=== PATIENT | male | born 1965 | race Hispanic/Latino ===

== ENCOUNTER 2018-01-22 11:35 | Emergency (ER) | payer MEDICARE, OTHER ==
--- NOTE | 2018-01-22 13:02 | Emergency Department Report ---
ED Rash HPI - HPI Chief Complaint: Skin Rash Stated Complaint: RASH Time Seen by Provider: 01/22/18 12:45 Duration: 3 Days Location: Upper Extremities Suspected Cause: Unknown Rash Symptoms: Yes Itching (both arms), No Facial Swelling, No Tongue/Oral Swelling, No Breathing Difficulties, No Choking Sensation, No Wheezing/Dyspnea, No Peeling, No Blistering, No Fever, No Lightheaded, No Malaise, No Myalgias Severity: moderate (itching) Other History: This is a 52-year-old male that had history of cellulitis inferior sports physical body and he reports that he was so severe and 2017 that he had that to left lower abdomen. Patient's that he is not having multiple areas of concern. He said he is having itchy rash on his arms that itches and bruises. He states that [facility] in [place] is unable to explain why. He has a history of liver transplant 10 years ago and he still on antirejection medication. Patient denies any pain. He states that he is having severe itching and he was recently doing yard work outdoors. Denies any respiratory symptoms. Denies any fever or chills. Denies cough congestion, shortness of breath or chest pain. Denies any abdominal pain. ED Review of Systems ROS: Stated complaint: RASH Other details as noted in HPI Constitutional: denies: chills, fever Eyes: denies: eye pain, vision change ENT: denies: ear pain, throat pain, congestion Respiratory: denies: cough, shortness of breath, SOB with exertion, SOB at rest , stridor, wheezing Cardiovascular: denies: chest pain, palpitations, edema, syncope Gastrointestinal: denies: nausea, vomiting, diarrhea Musculoskeletal: denies: back pain, joint swelling, arthralgia Skin: pruritus. denies: rash ED Past Medical Hx - Past Medical History Previous Medical History?: Yes Hx Renal Disease: Yes Additional medical history: liver transplant r/t Hep C.cellulitis requiring wound vac 11/2017,cellulitis left hand 2nd digit - Surgical History Past Surgical History?: Yes Additional Surgical History: left hand 2nd digit 11/2017-cellulitis - Family History Family history: hypertension - Social History Smoking Status: Current Every Day Smoker Substance Use Type: None - Medications Home Medications: Home Medications Medication Instructions Recorded Confirmed Last Taken Type Sulfamethoxazole/Trimethoprim 1 each PO BID 10 Days #20 tablet 01/22/18 Unknown Rx [Bactrim DS TAB] hydrOXYzine HCL [Atarax] 25 mg PO Q6HR PRN #12 tablet 01/22/18 Unknown Rx methylPREDNISolone [Medrol Dose 4 mg PO DAILY #1 tab.ds.pk 01/22/18 Unknown Rx Param] Rash Exam - Exam General: Vital signs noted. No distress. Alert and acting appropriately. This is a 52-year-old male well-nourished well-developed in no acute distress. HEENT: No Periorbital Edema, No Conjuctival Injection, No Chemosis, No Perioral Edema, No Tongue Edema, No Uvular Edema, No Compromised Airway, No Drooling Lungs: Yes Good Air Exchange (CTAB), No Wheezes, No Ronchi, No Stridor, No Cough , No Labored Respirations, No Retractions, No Use of Accessory Muscles, No Other Abnormal Lung Sounds Heart: Yes Regular (mild tachycardia 101, S1 and S2), No Murmur Front/Back of Body, Lg (Color): 1 - Patient with papular, erythema nontender cyst scattered rashes to upper extremities. Some areas of scabbing from where he is intensely scratching his skin. Bilateral radial and ulnar pulses are intact. 2+ and bounding and he has no restriction in movement to is joints or fingers. 2 - See #1 Skin: Yes Maculopapular Rash (bilateral upper extremity sparsely scattered), Yes Excoriations (some excoriation where patient is a chin), Yes Erythema, No Urticarial Rash, No Morbilliform rash, No Bulla(e), No Tenderness, No Edema, No Encrustations, No Other Other: Positive: Abdomen Normal, Neurologic Normal, Musculoskeletal Normal ED Course Vital Signs 01/22/18 11:42 Temperature 98.2 F Pulse Rate 101 H Respiratory 20 Rate Blood Pressure 135/91 O2 Sat by Pulse 100 Oximetry - Reevaluation(s) Reevaluation #1: 01/22/18 13:47 Patient given Deltasone 60 mg by mouth, Bactrim DS 1 tablet by mouth and Benadryl 50 mg IM with positive relief of itching. ED Medical Decision Making - Medical Decision Making This is a 52-year-old patient here reported that he has rash to his upper extremity that is itching. No medication taken but he said he went to [facility] and they did not know what the rash twice. Patient is seen and examined by myself and found to have papular erythema areas scattered sparsely to bilateral upper extremity. There are signs were he has been scratching in were he has area of skin infection. The patient has contact dermatitis problem from poison plant and superimposed bacterial infection. Patient was given Deltasone 60 mg by mouth, Benadryl 50 mg IM and Bactrim DS one by mouth. Patient has relief. I discussed the patient that he needs to follow up with primary care and community relations liaison and also let his organ transplant doctor knows that he is on medication for contact dermatitis. Any forcibly. Contact dermatitis more than likely due to poison plant-patient given Deltasone 60 mg by mouth and emergency room and follow-up with community relations liaison and his transplant doctor. Pruritus-will be discharged home in [place] and he was given Benadryl 50 mg I am in the emergency room which relieved his itching. Bacterial skin infection-to be discharged on Bactrim DS and he was given his first dose in the emergency room. Patient discharged home in stable condition. Vital signs are stable afebrile and is nontoxic in appearance. Itching has relief. Denies any nausea or vomiting. Patient discharged home with prescription for Bactrim DS to treat minor bacterial skin infection from him scratching and rash, Medrol Dosepak to treat contact dermatitis and Atarax for itching. He is to follow-up with his transplant doctor and also community relations liaison and PCP and 2 days and he voiced understanding. Critical care attestation.: If time is entered above; I have spent that time in minutes in the direct care of this critically ill patient, excluding procedure time. ED Disposition Clinical Impression: Pruritus, Skin infection, bacterial Contact dermatitis Qualifiers: Contact dermatitis type: allergic Contact dermatitis trigger: unspecified trigger Qualified Code(s): L23.9 - Allergic contact dermatitis, unspecified cause Disposition: - TO HOME OR SELFCARE Is pt being admited?: No Does the pt Need Aspirin: No Condition: Stable Instructions: Cellulitis (ED), Contact Dermatitis (ED), Itchy Skin (ED) Additional Instructions: Please take Atarax for itching but please do not drive or operate heavy machinery while taking this medication as it causes drowsiness Take Medrol Dosepak for contact dermatitis Take Bactrim DS for bacterial skin infection Follow-up with your primary care physician, community relations liaison Aristes organ transplant doctor in 2 days. Prescriptions: hydrOXYzine HCL [Atarax] 25 mg PO Q6HR PRN #12 tablet PRN Reason: Itching Referrals: PRIMARY CAREMD [Primary Care Provider] - 01/24/18 ROSS YOUNGER MD [Staff Physician] - 01/24/18 Forms: Work/School Release Form(ED)
[2018-01-22] MEDS ORDERED: DELTASONE PO ONE (13:12)
[2018-01-22] MEDS ORDERED: BENADRYL IM ONE (13:12)
[2018-01-22] MEDS ORDERED: BACTRIM DS PO ONE (13:13)
[2018-01-22 14:48] VITALS: BP 131/90
== END 2018-01-22 14:47 | disposition home or self-care (01) ==
LOC: ED 11:35
DX: L23.9 Allergic contact dermatitis, unspecified cause (principal); F17.200 Nicotine dependence, unspecified, uncomplicated
CPT/HCPCS: 96372; 99282; J1200; J7512

== ENCOUNTER 2018-02-09 09:00 | Emergency (ER) | payer MEDICARE ==
[2018-02-09 09:53] VITALS: BP 129/83
[2018-02-09] MEDS ORDERED: DELTASONE PO ONE (11:43)
[2018-02-09] MEDS ORDERED: FLEXERIL PO ONE (11:43)
--- NOTE | 2018-02-09 12:03 | Emergency Department Report ---
HPI - General Chief Complaint: Extremity Injury, Lower Time Seen by Provider: 02/09/18 11:28 - HPI HPI: 52-year-old male presents to the emergency department with complaint of a three-day history of some pain starting in the left lower back and radiates down his left leg to the knee. It worsens with certain movements and with walking. He denies any problems with bowel or bladder, numbness or paresthesias or any neurological deficits. He has tried some Aleve and Tylenol for his symptoms without any relief. He denies any falls or trauma. He has a past medical history of COPD, borderline hypertension and has a history of a liver transplant from hepatitis C. Patient is also requesting a refill of his liver transplant medication, Gengraf, as his medication is back at home in [place] and he does not return home and therefore one to 2 weeks. ED Past Medical Hx - Past Medical History Previous Medical History?: Yes Hx Hypertension: Yes (doctor took pt off bp medication) Hx Renal Disease: Yes Hx Arthritis: Yes Hx COPD: Yes Additional medical history: liver transplant r/t Hep C.cellulitis requiring wound vac 11/2017,cellulitis left hand 2nd digit - Surgical History Past Surgical History?: Yes Additional Surgical History: left hand 2nd digit 11/2017-cellulitis. liver transplant. right great toe surgery. bilateral knee surgery. pin placed in right ankle - Social History Smoking Status: Current Every Day Smoker Substance Use Type: None - Medications Home Medications: Home Medications Medication Instructions Recorded Confirmed Last Taken Type Sulfamethoxazole/Trimethoprim 1 each PO BID 10 Days #20 tablet 01/22/18 Unknown Rx [Bactrim DS TAB] hydrOXYzine HCL [Atarax] 25 mg PO Q6HR PRN #12 tablet 01/22/18 Unknown Rx methylPREDNISolone [Medrol Dose 4 mg PO DAILY #1 tab.ds.pk 01/22/18 Unknown Rx Param] Cyclobenzaprine [Flexeril 10 MG 10 mg PO TID #12 tablet 02/09/18 Unknown Rx TAB] cycloSPORINE, MODIFIED [Gengraf] 100 mg PO BID #20 capsule 02/09/18 Unknown Rx predniSONE [Deltasone] 20 mg PO BID #10 tablet 02/09/18 Unknown Rx ED Review of Systems ROS: Stated complaint: PAIN IN BACK RUNNING DOWN LEG Other details as noted in HPI Comment: All other systems reviewed and negative Constitutional: denies: chills, fever Eyes: denies: eye pain, eye discharge, vision change ENT: denies: ear pain, throat pain Respiratory: denies: cough, shortness of breath, wheezing Cardiovascular: denies: chest pain, palpitations Gastrointestinal: denies: abdominal pain, nausea, diarrhea Genitourinary: denies: urgency, dysuria Musculoskeletal: back pain. denies: arthralgia Skin: denies: rash, lesions Neurological: denies: headache, numbness Physical Exam - Physical Exam Vital Signs: Vital Signs 02/09/18 09:47 Temperature 99.3 F Pulse Rate 104 H Respiratory 18 Rate Blood Pressure 129/83 O2 Sat by Pulse 98 Oximetry Physical Exam: GENERAL: The patient is well-developed well-nourished. HENT: Normocephalic. Atraumatic. Patient has moist mucous membranes. EYES: Extraocular motions are intact. Straight NECK: Supple. Trachea is midline. CHEST/LUNGS: Clear to auscultation. There is no respiratory distress noted. HEART/CARDIOVASCULAR: Regular. There is no tachycardia. There is no murmur. ABDOMEN: Abdomen is soft, nontender. Patient has normal bowel sounds. There is no abdominal distention. SKIN: Skin is warm and dry.. NEURO: The patient is awake, alert, and oriented. The patient is cooperative. The patient has no focal neurologic deficits. The patient has normal speech. MUSCULOSKELETAL: There is no tenderness or deformity. There is no limitation range of motion. There is no evidence of acute injury. Muscle strength 5 out of 5 upper and lower extremity bilaterally. Reproducible and positive left straight leg raise test. BACK: No midline thoracic or lumbar tenderness to palpation, step-off or deformity. There is some reproducible left-sided lumbar tenderness to palpation. ED Course Vital Signs 02/09/18 09:47 Temperature 99.3 F Pulse Rate 104 H Respiratory 18 Rate Blood Pressure 129/83 O2 Sat by Pulse 98 Oximetry ED Medical Decision Making - Medical Decision Making Patient appears to have left lateral low back pain with sciatica going down the left leg. No midline spinal pain or tenderness or deformity. He has no problems with bowel or bladder, numbness or paresthesias or any neurological deficits. He appears low suspicion for any of the emergent condition such as cauda equina, epidural abscess or cord compression syndrome. Seen ambulatory in the emergency department and appears stable. He was given steroids and muscle relaxants for his symptoms. He was given a short refill of his liver transplant medications. He was instructed to follow-up with his primary care physician and his transplant doctor. To return to the emergency Department with any worsening of symptoms or any acute distress. Vital signs stable throughout his ED course. - Differential Diagnosis sciatica, lumbar strain, muscle spasm Critical Care Time: No Critical care attestation.: If time is entered above; I have spent that time in minutes in the direct care of this critically ill patient, excluding procedure time. ED Disposition Clinical Impression: Medication refill Sciatica Qualifiers: Laterality: left Qualified Code(s): M54.32 - Sciatica, left side Low back pain Qualifiers: Chronicity: acute Back pain laterality: left Sciatica presence: with sciatica Sciatica laterality: sciatica of left side Qualified Code(s): M54.42 - Lumbago with sciatica, left side Disposition: TO HOME OR SELFCARE Is pt being admited?: No Condition: Stable Instructions: Sciatica (ED), Lumbar Radiculopathy (ED), Back Pain (ED) Additional Instructions: Please follow-up with your primary care physician as soon as possible. Follow- up with your liver transplant physician. Return to the emergency Department with any worsening of your symptoms or any acute distress. You have been prescribed a medication that is sedating and therefore should not be taken prior to driving, working, and responsible for children and in no way should be mixed with alcohol of any quantity. Prescriptions: Cyclobenzaprine [Flexeril 10 MG TAB] 10 mg PO TID #12 tablet cycloSPORINE, MODIFIED [Gengraf] 100 mg PO BID #20 capsule predniSONE [Deltasone] 20 mg PO BID #10 tablet Referrals: PRIMARY CAREMD [Primary Care Provider] - [facility] Time of Disposition: 12:03
== END 2018-02-09 12:08 | disposition home or self-care (01) ==
LOC: ED 09:00
DX: M54.32 Sciatica, left side (principal); Z76.0 Encounter for issue of repeat prescription; I10 Essential (primary) hypertension; M19.90 Unspecified osteoarthritis, unspecified site; J44.9 Chronic obstructive pulmonary disease, unspecified; F17.200 Nicotine dependence, unspecified, uncomplicated
CPT/HCPCS: 99282; J7512

== ENCOUNTER 2018-02-12 11:18 | Emergency (ER) | payer MEDICARE ==
[2018-02-12 12:04] LABS: Bilirubin,Urine SM (Negative); Blood,Urine SM (Negative); Color,Urine Amber (Yellow); Mucus,Urine FEW /HPF
[2018-02-12 12:05] LABS: Ictotest,Urine Positive (Negative)
[2018-02-12 13:30] LABS: Hematocrit 29.4 % (35.5-45.6); Hemoglobin 9.8 gm/dl (11.8-15.2); Mean Corpuscular HGB Conc 33 % (32-34); Mean Corpuscular Hemoglobin 30 pg (28-32); Mean Corpuscular Volume 90 fl (84-94); Platelet Count 198 K/mm3 (140-440); Red Blood Count 3.26 M/mm3 (3.65-5.03); Red Cell Distribution Width 19.2 % (13.2-15.2)
[2018-02-12 13:49] LABS: Albumin 3.3 g/dL (3.9-5); Calcium 8.6 mg/dL (8.4-10.2)
[2018-02-12 14:13] LABS: Anisocytosis 1+; Basophils % (Manual) 0 % (0.0-1.8); Eosinophils % (Manual) 0 % (0.0-4.3); Hypochromasia 1+; Macrocytosis 1+; Ovalocytes 1+; Poikilocytosis 1+; Target Cells Few; Total Cells Counted 100
[2018-02-12 14:14] LABS: Platelet Estimate Consistent w Auto
[2018-02-12] MEDS ORDERED: ZOFRAN IV ONE (17:13)
[2018-02-12] MEDS ORDERED: SUBLIMAZE IV ONE ×3 (17:13→22:34)
[2018-02-12 17:56] LABS: INR 0.99 (0.87-1.13)
[2018-02-12 17:57] LABS: Partial Thromboplastin Time 29.7 Sec. (24.2-36.6)
[2018-02-12 17:59] LABS: Bilirubin,Direct 7.4 mg/dL (0-0.2)
[2018-02-12] MEDS ORDERED: CEPHULAC PO ONE (19:44)
--- NOTE | 2018-02-12 19:49 | Emergency Department Report ---
HPI - HPI HPI: The patient is a 52-year-old male with a history of cirrhosis and liver transplant secondary to hepatitis C, who presents for evaluation of abdominal pain. The patient reports 3-4 days of generalized abdominal pain, recurrent belching, and severe flatulence. He states that his pain has been moderate severity, crampy in quality, constant since onset, progressive. He also reports associated intermittent loose watery stools. The patient denies fever, chills, night sweats, chest pain, dyspnea, hematemesis, blood in the stool, dark tarry stool, dysuria, hematuria, flank pain, genital discharge, inability to pass flatus. <JOHANA SOSA - Last Filed: 02/12/18 19:44> <NATHALIA SIN - Last Filed: 02/12/18 21:20> - General Chief Complaint: Abdominal Pain Time Seen by Provider: 02/12/18 15:08 ED Past Medical Hx - Past Medical History Hx Hypertension: Yes (doctor took pt off bp medication) Hx Renal Disease: Yes Hx Arthritis: Yes Hx COPD: Yes Additional medical history: liver transplant r/t Hep C.cellulitis requiring wound vac 11/2017,cellulitis left hand 2nd digit - Surgical History Past Surgical History?: Yes Additional Surgical History: left hand 2nd digit 11/2017-cellulitis. liver transplant. right great toe surgery. bilateral knee surgery. pin placed in right ankle - Social History Smoking Status: Current Every Day Smoker Substance Use Type: Methamphetamines <JOHANA SOSA - Last Filed: 02/12/18 19:44> <NATHALIA SIN - Last Filed: 02/12/18 21:20> - Medications Home Medications: Home Medications Medication Instructions Recorded Confirmed Last Taken Type Sulfamethoxazole/Trimethoprim 1 each PO BID 10 Days #20 tablet 01/22/18 Unknown Rx [Bactrim DS TAB] hydrOXYzine HCL [Atarax] 25 mg PO Q6HR PRN #12 tablet 01/22/18 Unknown Rx methylPREDNISolone [Medrol Dose 4 mg PO DAILY #1 tab.ds.pk 01/22/18 Unknown Rx Param] Cyclobenzaprine [Flexeril 10 MG 10 mg PO TID #12 tablet 02/09/18 Unknown Rx TAB] cycloSPORINE, MODIFIED [Gengraf] 100 mg PO BID #20 capsule 02/09/18 Unknown Rx predniSONE [Deltasone] 20 mg PO BID #10 tablet 02/09/18 Unknown Rx ED Review of Systems ROS: Stated complaint: LIVER TRANSPLANT DONT FEEL GOOD Other details as noted in HPI Constitutional: denies: fever ENT: denies: throat or neck pain Respiratory: denies: cough, shortness of breath Cardiovascular: denies: chest pain Endocrine: denies unexplained weight loss or gain Gastrointestinal: reports abdominal pain, nausea Genitourinary: denies: dysuria Musculoskeletal: denies: leg swelling Skin: denies: rash Neurological: denies: headache Hematological/Lymphatic: denies: easy bleeding or easy bruising Psych: denies sadness or hopelessness <JOHANA SOSA - Last Filed: 02/12/18 19:44> ROS: Stated complaint: LIVER TRANSPLANT DONT FEEL GOOD Other details as noted in HPI <NATHALIA SIN - Last Filed: 02/12/18 21:20> Physical Exam - Physical Exam Vital Signs: Vital Signs 02/12/18 02/12/18 02/12/18 11:27 16:13 17:51 Temperature 98.3 F Pulse Rate 97 H Respiratory 18 16 16 Rate Blood Pressure 138/96 O2 Sat by Pulse 98 98 Oximetry 02/12/18 18:21 Temperature Pulse Rate Respiratory 16 Rate Blood Pressure O2 Sat by Pulse Oximetry Physical Exam: General: well-nourished, well-developed, no acute distress Head: Normocephalic, atraumatic Eyes: Sclera icterus is present ENT: Mucous membranes are pink and moist Neck: trachea midline, neck supple, No neck stiffness, no cervical adenopathy Respiratory: Breath sounds equal bilaterally, no wheezing, rales, or rhonchi Cardio: S1 and S2 present, no murmurs, rubs, gallops, capillary refill is brisk Abdomen: Normoactive bowel sounds, soft abdomen, epigastric, right upper quadrant, right lower quadrant tenderness to palpation present, no rigidity, no guarding or rebound tenderness Chest WALL/Back: No tenderness to palpation of the chest wall, no CVA tenderness with percussion Musc: No pitting edema Skin: No rash Neuro: no facial drooping, normal speech Psych: Normal affect <JOHANA SOSA - Last Filed: 02/12/18 19:44> - Physical Exam Vital Signs: Vital Signs 02/12/18 02/12/18 02/12/18 11:27 16:13 17:51 Temperature 98.3 F Pulse Rate 97 H Respiratory 18 16 16 Rate Blood Pressure 138/96 Blood Pressure [Left] O2 Sat by Pulse 98 98 Oximetry 02/12/18 02/12/18 02/12/18 18:21 20:30 20:34 Temperature 98 F Pulse Rate 81 Respiratory 16 16 16 Rate Blood Pressure Blood Pressure 157/103 [Left] O2 Sat by Pulse 99 Oximetry 02/12/18 21:00 Temperature Pulse Rate Respiratory 14 Rate Blood Pressure Blood Pressure [Left] O2 Sat by Pulse Oximetry <NATHALIA SIN - Last Filed: 02/12/18 21:20> ED Course Vital Signs 02/12/18 02/12/18 02/12/18 11:27 16:13 17:51 Temperature 98.3 F Pulse Rate 97 H Respiratory 18 16 16 Rate Blood Pressure 138/96 O2 Sat by Pulse 98 98 Oximetry 02/12/18 18:21 Temperature Pulse Rate Respiratory 16 Rate Blood Pressure O2 Sat by Pulse Oximetry <JOHANA SOSA - Last Filed: 02/12/18 19:44> Vital Signs 02/12/18 02/12/18 02/12/18 11:27 16:13 17:51 Temperature 98.3 F Pulse Rate 97 H Respiratory 18 16 16 Rate Blood Pressure 138/96 Blood Pressure [Left] O2 Sat by Pulse 98 98 Oximetry 02/12/18 02/12/18 02/12/18 18:21 20:30 20:34 Temperature 98 F Pulse Rate 81 Respiratory 16 16 16 Rate Blood Pressure Blood Pressure 157/103 [Left] O2 Sat by Pulse 99 Oximetry 02/12/18 21:00 Temperature Pulse Rate Respiratory 14 Rate Blood Pressure Blood Pressure [Left] O2 Sat by Pulse Oximetry <NATHALIA SIN - Last Filed: 02/12/18 21:20> ED Medical Decision Making - Lab Data Result diagrams: 02/12/18 13:02 02/12/18 13:02 - Medical Decision Making The patient was seen and examined by myself. The patient is placed on a threat monitoring analyst and continuous pulse ox. On initial evaluation, the patient was found to be in no distress. Evaluation orders are placed. IV access is established and the patient is given 1 L normal saline fluid bolus and Zofran for nausea, and IV fentanyl for pain. Lab results reveal severely elevated bilirubin of 10, total bilirubin 8, elevated alkaline phosphatase, mildly elevated AST ALT, mildly elevated ammonia of 75. The patient is given lactulose for treatment of hyperammonemia. The patient was reevaluated and reported that his pain persisted. The patient is given a second dose of IV fentanyl. CT scan abdomen and pelvis with contrast is pending. The patient is signed out to the oncoming cook night ED physician Dr. Krystian Sin, who agrees to a transfer of care the patient. He also agrees to follow-up on pending CT scan of the abdomen and pelvis results, and to arrange appropriate disposition <JOHANA SOSA P - Last Filed: 02/12/18 19:44> - Lab Data Result diagrams: 02/12/18 13:02 02/12/18 13:02 - Radiology Data CT of abdomen and pelvis with IV contrast shows findings concerning for thrombus of the main portal vein there is evidence of portal venous hypertension with portosystemic collateral flow. Splenomegaly. There is small amount of free fluid in the pelvis as well as mildly prominent periaortic lymph nodes. Compression fracture of T11 vertebral body of indeterminate age. - Medical Decision Making Case was discussed with Dr. Estrada at [facility] hepatology group. We discussed patient's findings. Patient be started on standard protocol for heparin and will be transferred to [facility] <NATHALIA SIN - Last Filed: 02/12/18 21:20> Critical care attestation.: If time is entered above; I have spent that time in minutes in the direct care of this critically ill patient, excluding procedure time. <JOHANA SOSA - Last Filed: 02/12/18 19:44> Critical Care Time: Yes (30) Critical care attestation.: If time is entered above; I have spent that time in minutes in the direct care of this critically ill patient, excluding procedure time. <NATHALIA SIN - Last Filed: 02/12/18 21:20> ED Disposition Time of Disposition: 19:50 <JOHANA SOSA - Last Filed: 02/12/18 19:44> Is pt being admited?: No Does the pt Need Aspirin: No <NATHALIA SIN - Last Filed: 02/12/18 21:20> Clinical Impression: Portal vein thrombosis of transplanted liver, Acute generalized abdominal pain , Acquired hyperbilirubinemia, Elevated LFTs Disposition: DC/TX-70 ANOTHER [facility] Condition: Serious Referrals: PRIMARY CARE, [Primary Care Provider] - 3-5 Days
--- NOTE | 2018-02-12 20:22 | Cat Scan Report ---
FINAL REPORT EXAM: CT ABDOMEN PELVIS W CON HISTORY: abd pain, jaundice, hx liver transplant yrs ago TECHNIQUE: Following IV administration of 100 cc of Omnipaque 300 and oral administration of GI contrast axial helical imaging was performed through the abdomen and pelvis with sagittal and coronal reformatted images obtained. Delayed axial helical imaging was also performed through the abdomen and pelvis. Comparison: None FINDINGS: There is a nonacute left-sided rib fracture with associated focal pleural and parenchymal thickening. There is dependent atelectasis in both lungs and a calcified granuloma in the left lung base. A pulmonary infiltrate in the dependent portions of the lungs cannot entirely be excluded. The heart is enlarged. The liver is unremarkable in appearance. Surgical clips are demonstrated in the right upper quadrant consistent with previous liver transplant. There is decreased density in portions of the main portal vein concerning for portal venous thrombus. The spleen is enlarged and contains calcified granulomas. There is evidence of portal systemic collateral flow. The pancreas is unremarkable in appearance. There is mild prominence of the renal collecting systems bilaterally without definite evidence of hydronephrosis. The gallbladder is absent. The adrenal glands are unremarkable in appearance. The bowel is normal caliber. There is a moderate amount of stool throughout the colon. There is a small amount of free fluid in the pelvis. The appendix is normal in appearance. There is no evidence of pneumoperitoneum. The abdominal aorta is normal caliber. There are mildly prominent retroperitoneal/periaortic lymph nodes. The largest measures approximately 1.8 centimeters in the maximal axial dimension. The urinary bladder is moderately distended. There is increased thickness of the urinary bladder wall. The prostate gland is upper limits of normal size. The bony structures are notable for a compression fracture of the T11 vertebral body of indeterminate age and spondylitic change of the lumbar spine. IMPRESSION: 1. Findings concerning for thrombus in the main portal vein. 2. Evidence of portal venous hypertension with portal systemic collateral flow. 3. Splenomegaly. 4. Mild prominence of the renal collecting system bilaterally. 5. Increased thickness of the bladder wall. 6. Small amount of free fluid in the pelvis. 7. Mildly prominent periaortic lymph nodes. 8. Compression fracture T11 vertebral body of indeterminate age. 9. Dependent atelectasis both lung bases. A small focal infiltrate cannot entirely be excluded. 10. Cardiomegaly. 11. None acute left-sided rib fracture. The findings concerning for thrombus in the main portal vein, splenomegaly and evidence of portal venous hypertension were discussed with Dr. Sin at 8:20 p.m. February 12, 2018.
[2018-02-12] MEDS ORDERED: HEPARIN 10,000 UNITS/10 ML IV ONE (21:15)
[2018-02-12] MEDS ORDERED: NACL 0.9% 1000 ML 1,000 ML IV ONE (21:15)
[2018-02-12 21:52] LABS: INR 1.04 (0.87-1.13)
[2018-02-12 21:53] LABS: Partial Thromboplastin Time 30.4 Sec. (24.2-36.6)
[2018-02-12 21:58] LABS: Hematocrit 28.1 % (35.5-45.6)
[2018-02-12 21:59] LABS: Hemoglobin 9.5 gm/dl (11.8-15.2)
[2018-02-12] MEDS ORDERED: HEPARIN/ 0.45% NACL-25,000 UNIT/500 ML 25,000 UNIT/500 ML BAG IV SCH (22:00)
[2018-02-12 22:32] VITALS: BP 153/92
[2018-02-12] MEDS ORDERED: CATAPRES PO ONE (22:33)
== END 2018-02-12 23:20 | disposition other institution (70) ==
LOC: ED 11:18
DX: E80.6 Other disorders of bilirubin metabolism (principal); I12.9 Hypertensive chronic kidney disease with stage 1 through stage 4 chronic kidney disease, or unspecified chronic kidney disease; N18.9 Chronic kidney disease, unspecified; M19.90 Unspecified osteoarthritis, unspecified site; J44.9 Chronic obstructive pulmonary disease, unspecified; F17.200 Nicotine dependence, unspecified, uncomplicated; Z86.19 Personal history of other infectious and parasitic diseases
CPT/HCPCS: 36415; 74177; 80053; 80074; 81001; 82140; 83690; 85007; 85014; 85018; 85025; 85049; 85610; 85730; 96361; 96365; 96366; 96375; 96376; 99291; J1644; J2405; J3010; J7030; Q9967